=== PATIENT | male | born 1990 | race Caucasian/White ===

== ENCOUNTER 2017-11-02 19:04 | Emergency (ER) | END 2017-11-03 04:22 | disposition home or self-care (01) ==

== ENCOUNTER 2017-11-12 23:03 | Emergency (ER) | END 2017-11-13 02:05 | disposition left against medical advice (07) ==

== ENCOUNTER 2018-07-05 17:40 | Emergency (ER) | END 2018-07-05 20:02 | disposition home or self-care (01) ==